=== PATIENT | female | born 1985 | race Caucasian/White ===

== ENCOUNTER 2020-11-03 07:16 | Inpatient (IN) | payer BC ==
[2020-11-03] MEDS ORDERED: Ondansetron 4 MG/2 ML SDV IVPUSH PRN (07:26)
[2020-11-03] MEDS ORDERED: Sodium Chloride 0.9% 10 ML Syringe FLUSH PRN (07:26)
[2020-11-03] MEDS ORDERED: Nalbuphine 10 MG/1 ML Vial IVPUSH PRN (07:26)
[2020-11-03] MEDS ORDERED: Oxytocin/Lactated Ringers 10 UNIT/1,000 ML BAG IV SCH ×2 (07:30)
--- NOTE | 2020-11-03 09:03 | PCM.LDHP ---
L&D History of Present Illness - General Date of Service: 11/03/20 Admit Problem/Dx: Patient Status Order with Admit Dx/Problem 11/03/20 07:26 Patient Status [ADT] Routine Admission Diagnosis/Problem Admission Diagnosis/Problem 11/03/20 08:48 Linh is a 35-year-old 5 para 3-0-1-3 female admitted on the a.m. of 11/03/2020 at 40-0/7 weeks with an MJ of 11/03/2020 for elective induction of labor. Source of Information: Patient History Limitations: Reports: No Limitations - History of Present Illness Introduction:: Linh is a 35-year-old 5 para 3-0-1-3 female admitted on the a.m. of 11/03/2020 at 40-0/7 weeks with an MJ of 11/03/2020 for elective induction of labor. The procedure and process of induction of labor its risks, benefits, limitations and alternatives of care including allowing for natural onset of labor all discussed with patient. She appears understand and wishes to proceed. THERAPEUTIC SPECIALIST history: 5 para 3-0-1-3. Patient has had 3 vaginal deliveries in the past and 1 ectopic resulting in a right salpingectomy. Her babies have been delivered in [place]. She had menarche at age 13. Cycles q. 26 days. Last menstrual period onset 01/28/2020 was certain. Cycles are regular and she is not using any control at the time of conception. Previous obstetric history includes the followin. Female born 05/31/2013 at 40 weeks gestational age after 12 hours of labor7 pounds 4 ouncesNSVDepidural [facility]del[facility]. 2. Right tubal 03/27/2014 at 6 weeks gestation. Treated with right salpingectomy 3. Male infant born 07/02/2015 at 41 weeks gestational age after 12 hours of labor9 pounds 9 ouncesNSVDepidural [facility]. 4. Male infant born 05/28/2019 at 40 weeks gestational age after 12 hours of labor9 pounds 8 ouncesNSVD-no anesthesia-delivered [facility]-child's name is Cole course: Patient was initially seen for care on 04/11/2020. She is seen on a very regular basis. Her vital signs remained stable throughout the course. Her weight gain was from 212.2 pounds to 238.8 pounds for a 26 pound increase. Ultrasound evaluation obtained at 20 weeks did not optimally visualize all anatomy. Repeat ultrasound at 24-4/7 weeks showed the right femur to be shorter than the left femur. This was followed and evaluated again at 32 weeks and by maternal- medicine at 35 weeks. 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 There is no concerns noted that would preclude delivery in [place] but because of uncertain bone structure and composition recommendation was not to do operative vaginal delivery. Patient desires an epidural in labor. She is group B strep negative. She declined genetic testing. She has a history of depression with anxiety. She has been on bupropion HCl ER (XL) 150 mg daily. Her [place] depression screen on 07/01/2020 as a score of 21/30. She plans on breast-feeding. Tdap was given on 09/04/2020. Patient is rubella immune. Laboratory testing shows blood to be O+ with a negative antibody screen. First hemoglobin was 12.7 g/dL and platelets were 322,000. She is rubella immune. RPR is nonreactive. Urine culture was negative. HIV and hepatitis B surface antigen assays were both negative. Chlamydia and gonorrhea were both negative. Hepatitis C virus antibody was less than 0.1normal. Second trimester laboratory testingpatient declined the 1 hour GTT. Hemoglobin A1c was unremarkablenormal at 5.6%. Group B strep screen was negative. Hemoglobin on 10/08/2020 was 11.3 and platelets were 249. Allergies: 1. Ceclor Medications: 1. vitamins 1 daily 2. Bupropion XL 150 mg p.o. daily 3. Zyrtec 10 mg p.o. daily as needed 4. Ferrous sulfate 325 mg p.o. daily. Past medical history: 1. x3 2. Anxiety/depression with history of depression on meds 3. Right tubal pregnancytreated with salpingectomy Past surgical history: 1. [place] teeth extraction 2. Right salpingectomy Family history: Mother is alive with high cholesterol and history of depression. Father is alive with platelet abnormality, spleen removed, lung cancer, non- smoker. Maternal grandfather in his 90s. Maternal grandmother in her 90s. Paternal grand father is from dementia in his mid 80s. Paternal grandmother is early 70scolon cancer diagnosed in her early 40s. from liver failure, nondrinker. Patient has 4 sisters who are alive and well. There is no family history of bleeding/clotting disorders, anesthesia related problems or related concerns. Social history: Patient is . is Juancho. 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 She is a [employer] graduate. They live in [place], [place]. Review of systems: Review of systems: In general patient has no complaints. Baby has been active. Occasional contractions noted. Skin: Negative Lungs: No infectious symptoms or shortness of breath Cardiovascular: No chest pain or exercise intolerance Breasts: No lumps, changes in size, pain, dimpling, discharge or axillary or supraclavicular concerns. GI: Negative : Body habitus changes associated with Musculoskeletal: Negative Neurological: Negative Physical exam: In general the patient is well-developed, well-nourished, pleasant female of stated age in no acute distress. On last evaluation clinic on 10/31/2020 blood pressure is 122/88. Weight was 238.8 pounds with pregravid weight of 212 pounds. Height is 5 feet 5 inches. heart rate was 152 bpm. Skin is warm dry without lesions. HEENT, neck and back within normal limits. Lungs are clear with good breath sounds in all lung owen. Cardiovascular exam shows regular and rhythm without murmurs. Breast exam is not done at this time having been done at first heath visit and found to be normal. She plans to breast-feed. Abdomen is gravid with last fundal height in clinic at 38 cm. Baby in vertex presentation.. Genital per digital exam shows cervix to be 2 cm, 90% effaced, soft, anterior, - 1 station. AROM was undertaken with resultant clear amniotic fluid. Extremities and neurological exam are grossly within normal limits. - Related Data Allergies/Adverse Reactions: Allergies Allergy/AdvReac Type Severity Reaction Status Date / Time cefaclor [From [facility]] Allergy Rash Verified 11/03/20 08:13 Past Medical History HEENT History: Reports: Allergic Rhinitis THERAPEUTIC SPECIALIST History: Reports: Ectopic , , Other (See Below) Other OB/BYN History: Hx: macrosomic , right salpingectomy Psychiatric History: Reports: Anxiety, Depression - Past Surgical History HEENT Surgical History: Reports: Oral Surgery Other HEENT Surgeries/Procedures: [place] teeth extraction Social & Family History - Family History Family Medical History: No Pertinent Family History - Tobacco Use Tobacco Use Status *Q: Never Tobacco User Second Hand Smoke Exposure: No - Recreational Drug Use Recreational Drug Use: No H&P Review of Systems - Review of Systems: Review Of Systems: See Below L&D Exam - Exam Exam: See Below - Vital Signs Weight: 107.229 kg - Patient Data Lab Results Last 24 hrs: Laboratory Results - last 24 hr 11/03/20 11/03/20 Range/Units 07:40 07:40 WBC 10.34 H (3.98-10.04) K/mm3 RBC 4.10 (3.98-5.22) M/mm3 Hgb 11.4 (11.2-15.7) gm/dl Hct 34.5 (34.1-44.9) % MCV 84.1 (79.4-94.8) fl MCH 27.8 (25.6-32.2) pg MCHC 33.0 (32.2-35.5) g/dl RDW Std Deviation 47.2 H (36.4-46.3) fL Plt Count 218 (182-369) K/mm3 MPV 7.9 L (9.4-12.3) fl Neut % (Auto) 76.9 H (34.0-71.1) % Lymph % (Auto) 13.9 L (19.3-51.7) % Peach % (Auto) 7.2 (4.7-12.5) % Eos % (Auto) 1.4 (0.7-5.8) Baso % (Auto) 0.1 (0.1-1.2) % Neut # (Auto) 7.96 H (1.56-6.13) K/mm3 Lymph # (Auto) 1.44 (1.18-3.74) K/mm3 Peach # (Auto) 0.74 H (0.24-0.36) K/mm3 Eos # (Auto) 0.14 (0.04-0.36) K/mm3 Baso # (Auto) 0.01 (0.01-0.08) K/mm3 SARS-CoV-2 RNA (IRON) Negative (NEGATIVE) Result Diagrams: 11/03/20 07:40 - Problem List (1) 40 weeks gestation of SNOMED Code(s): 65976769 ICD Code: Z3A.40 - 40 WEEKS GESTATION OF Status: Acute Current Visit: Yes (2) History of anxiety SNOMED Code(s): 955617044 ICD Code: Z86.59 - PERSONAL HISTORY OF OTHER MENTAL AND BEHAVIORAL DISORDERS Status: Acute Current Visit: Yes (3) History of depression SNOMED Code(s): 172118541 ICD Code: Z86.59 - PERSONAL HISTORY OF OTHER MENTAL AND BEHAVIORAL DISORDERS Status: Acute Current Visit: Yes (4) anomaly SNOMED Code(s): 39677164, 265757128 ICD Code: [id number] - Status: Acute Current Visit: Yes (5) Obesity SNOMED Code(s): 349814518, 747703584 ICD Code: E66.9 - OBESITY, UNSPECIFIED Status: Acute Current Visit: Yes (6) macrosomia SNOMED Code(s): 09946536 ICD Code: O36.60X0 - MATERNAL CARE FOR EXCESS GROWTH, UNSP TRIMESTER, UNSP Status: Acute Current Visit: Yes Problem List Initiated/Reviewed/Updated: Yes Orders Last 24hrs: Active Orders 24 hr Category Date Time Status Patient Status [ADT] Routine ADT 11/03/20 07:26 Active Activity as Tolerated [RC] PFP Care 11/03/20 07:26 Active Communication Order [RC] ASDIRECTED Care 11/03/20 07:26 Active Heart Tones [RC] ASDIRECTED Care 11/03/20 07:26 Active Non Stress Test [RC] PER UNIT ROUTINE Care 11/03/20 07:26 Active Notify Provider [RC] PFP Care 11/03/20 07:26 Active Notify Provider [RC] PRN Care 11/03/20 07:26 Active Peripheral IV Care [RC] . DIRECTED Care 11/03/20 07:26 Active Vital Signs [RC] PER UNIT ROUTINE Care 11/03/20 07:26 Active Regular Diet [DIET] Diet 11/03/20 Breakfast Active BLOOD BANK HOLD SPECIMEN [BBK] Stat Lab 11/03/20 07:40 Received RAPID PLASMA REAGIN,RPR [CHEM] Routine Lab 11/03/20 07:40 Received Lactated Ringers [Ringers, Lactated] 1,000 ml Med 11/03/20 07:30 Active IV ASDIRECTED Nalbuphine [Nubain] Med 11/03/20 07:26 Active 10 mg IVPUSH Q2H PRN Ondansetron [Zofran] Med 11/03/20 07:26 Active 4 mg IVPUSH Q4H PRN Oxytocin/Lactated Ringers [Pitocin in LR 10 Units/1,000 Med 11/03/20 07:30 Active ML] 10 unit in 1,000 ml IV .CONTINUOUS Oxytocin/Lactated Ringers [Pitocin in LR 10 Units/1,000 Med 11/03/20 07:30 Active ML] 10 unit in 1,000 ml IV TITRATE Sodium Chloride 0.9% [Saline Flush] Med 11/03/20 07:26 Active 10 ml FLUSH ASDIRECTED PRN Electronic Heart Tones Ext w TOCO [WOMSER] Oth 11/03/20 07:26 Ordered Routine Electronic Heart Tones Internal [WOMSER] Per Unit Oth 11/03/20 07:26 Ordered Routine Peripheral IV Insertion Adult [OM.PC] Routine Oth 11/03/20 07:26 Ordered Resuscitation Status Routine Resus Stat 11/03/20 07:26 Ordered Medication Orders Oxytocin/Lactated Ringer's (Pitocin In Lr 10 Units/1,000 Ml) 10 unit in 1,000 mls @ 12 mls/hr IV TITRATE MAYDA; Protocol Oxytocin/Lactated Ringer's (Pitocin In Lr 10 Units/1,000 Ml) 10 unit in 1,000 mls @ 500 mls/hr IV .CONTINUOUS MAYDA Lactated Ringer's (Ringers, Lactated) 1,000 mls @ 100 mls/hr IV ASDIRECTED MAYDA Nalbuphine HCl (Nalbuphine 10 Mg/1 Ml Vial) 10 mg IVPUSH Q2H PRN PRN Reason: Pain Ondansetron HCl (Ondansetron 4 Mg/2 Ml Sdv) 4 mg IVPUSH Q4H PRN PRN Reason: Nausea/Vomiting Sodium Chloride (Sodium Chloride 0.9% 10 Ml Syringe) 10 ml FLUSH ASDIRECTED PRN PRN Reason: Keep Vein Open Assessment/Plan Comment:: 1Jake Melton is a 35-year-old 5 para 3-0-1-3 female admitted on the a.m. of 11/03/2020 at 40-0/7 weeks with an MJ of 11/03/2020 for elective induction of labor. 2. Group B strep negative 3. Patient desires epidural 4. Risk factors include the following: History of anomalyright leg rhizomelia, history of depression/anxietyon meds, obesity, previous ectopic pregnancyright fallopian tube, history of macrosomia. 5. Patient plans to breast-feed. Plan: 1. AROM induction of labor with Pitocin augmentation as indicated. 2. Anticipate 3. Support breast-feeding decision 4. Continue on bupropion after delivery 5. Routine preoperative evaluation with CBC, Covid19 testing, RPR. 6. Epidural for labor analgesia. 7. No operative vaginal deliveries per [facility] recommendation
[2020-11-03] MEDS: Lactated Ringers 1,000 ML IV SCH ×2 (10:04→11:06)
[2020-11-03] MEDS ORDERED: Bupivacaine/fentaNYL/NS 100 ML Bag EPIDUR PRN (11:02)
[2020-11-03] MEDS ORDERED: fentaNYL 100 MCG/2 ML SDV EPIDUR PRN (11:02)
[2020-11-03] MEDS ORDERED: diphenhydrAMINE 50 MG/ML SDV IVPUSH PRN (11:02)
[2020-11-03] MEDS ORDERED: ePHEDrine 50 MG/ML SDV IVPUSH PRN (11:02)
--- NOTE | 2020-11-03 11:14 | PCM.PREANE ---
Preanesthetic Assessment - Procedure Proposed Procedure: Labor epidural - Anesthesia/Transfusion/Family Hx Anesthesia History: Prior Anesthesia Without Reaction Family History of Anesthesia Reaction: No Transfusion History: No Prior Transfusion(s) Intubation History: Unknown - Review of Systems General: No Symptoms Pulmonary: Cough (Has a cough, has a cold, covid negative) Cardiovascular: No Symptoms Gastrointestinal: Abdominal Pain (uterine contractions) Neurological: No Symptoms Other: Reports: Depression, Anxiety - Physical Assessment NPO Status Date: 11/03/20 NPO Status Time: 11:10 Vital Signs: Last Vital Signs Temp 97.9 F 11/03/20 07:26 Pulse 100 11/03/20 07:26 Resp 16 11/03/20 07:26 BP 136/76 11/03/20 07:26 Pulse Ox 100 11/03/20 07:26 Height: 1.7 m Weight: 107.229 kg ASA Class: 2 Mental Status: Alert & Oriented x3 Airway Class: Mallampati = 2 Dentition: Reports: Normal Dentition Thyro-Mental Finger Breadths: 3 Mouth Opening Finger Breadths: 3 ROM/Head Extension: Full Lungs: Clear to Auscultation, Normal Respiratory Effort Cardiovascular: Regular Rate, Regular Rhythm, No Murmurs - Lab Values: Laboratory Last Values WBC 10.34 K/mm3 (3.98-10.04) H 11/03/20 07:40 RBC 4.10 M/mm3 (3.98-5.22) 11/03/20 07:40 Hgb 11.4 gm/dl (11.2-15.7) 11/03/20 07:40 Hct 34.5 % (34.1-44.9) 11/03/20 07:40 MCV 84.1 fl (79.4-94.8) 11/03/20 07:40 MCH 27.8 pg (25.6-32.2) 11/03/20 07:40 MCHC 33.0 g/dl (32.2-35.5) 11/03/20 07:40 RDW Std Deviation 47.2 fL (36.4-46.3) H 11/03/20 07:40 Plt Count 218 K/mm3 (182-369) 11/03/20 07:40 MPV 7.9 fl (9.4-12.3) L 11/03/20 07:40 Neut % (Auto) 76.9 % (34.0-71.1) H 11/03/20 07:40 Lymph % (Auto) 13.9 % (19.3-51.7) L 11/03/20 07:40 Motley % (Auto) 7.2 % (4.7-12.5) 11/03/20 07:40 Eos % (Auto) 1.4 (0.7-5.8) 11/03/20 07:40 Baso % (Auto) 0.1 % (0.1-1.2) 11/03/20 07:40 Neut # (Auto) 7.96 K/mm3 (1.56-6.13) H 11/03/20 07:40 Lymph # (Auto) 1.44 K/mm3 (1.18-3.74) 11/03/20 07:40 Motley # (Auto) 0.74 K/mm3 (0.24-0.36) H 11/03/20 07:40 Eos # (Auto) 0.14 K/mm3 (0.04-0.36) 11/03/20 07:40 Baso # (Auto) 0.01 K/mm3 (0.01-0.08) 11/03/20 07:40 SARS-CoV-2 RNA (IRON) Negative (NEGATIVE) 11/03/20 07:40 Labs reviewed and okay to proceed - Allergies Allergies/Adverse Reactions: Allergies Allergy/AdvReac Type Severity Reaction Status Date / Time cefaclor [From [facility]] Allergy Rash Verified 11/03/20 08:13 - Blood Blood Available: No - Acknowledgements Anesthesia Type Planned: Epidural Pt an Appropriate Candidate for the Planned Anesthesia: Yes Alternatives and Risks of Anesthesia Discussed w Pt/Guardian: Yes Pt/Guardian Understands and Agrees with Anesthesia Plan: Yes PreAnesthesia Questionnaire HEENT History: Reports: Allergic Rhinitis Cardiovascular History: Reports: None Respiratory History: Reports: None Gastrointestinal History: Reports: GERD Genitourinary History: Reports: None 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 , , Other (See Below) Other OB/BYN History: Hx: macrosomic , right salpingectomy Musculoskeletal History: Reports: None Neurological History: Reports: None Psychiatric History: Reports: Anxiety, Depression Endocrine/Metabolic History: Reports: Obesity/BMI 30+ Hematologic History: Reports: None Immunologic History: Reports: None Oncologic (Cancer) History: Reports: None Dermatologic History: Reports: None - Past Surgical History HEENT Surgical History: Reports: Oral Surgery Other HEENT Surgeries/Procedures: [place] teeth extraction Other Female Surgeries/Procedures: Right salpingectomy - SUBSTANCE USE Tobacco Use Status *Q: Never Tobacco User Tobacco Use Within Last Twelve Months: No Second Hand Smoke Exposure: No Recreational Drug Use History: No - HOME MEDS Home Medications: Home Meds Cetirizine HCl [Zyrtec] 10 mg PO DAILY 11/03/20 [History] Mv-Mn/Iron/FA/Herbal/Digestive [ One Tablet] 1 each PO DAILY 11/03/20 [History] buPROPion HCL [Wellbutrin Xl] 150 mg PO DAILY 11/03/20 [History] - CURRENT (IN HOUSE) MEDS Current Meds: Current Medications Diphenhydramine HCl (Diphenhydramine 50 Mg/Ml Sdv) 25 mg IVPUSH Q6H PRN PRN Reason: pruritis Ephedrine Sulfate (Ephedrine 50 Mg/Ml Sdv) 5 mg IVPUSH ASDIRECTED PRN PRN Reason: Hypotension Fentanyl (Fentanyl 100 Mcg/2 Ml Sdv) 100 mcg EPIDUR Q3H PRN PRN Reason: Pain Fentanyl/Bupivacaine HCl (Bupivacaine/Fentanyl/Ns 100 Ml Bag) 100 ml EPIDUR ASDIRECTED PRN PRN Reason: Pain Oxytocin/Lactated Ringer's (Pitocin In Lr 10 Units/1,000 Ml) 10 unit in 1,000 mls @ 12 mls/hr IV TITRATE MAYDA; Protocol Last Titration: 11/03/20 11:02 Dose: 4 munits/min, 24 mls/hr Documented by: Oxytocin/Lactated Ringer's (Pitocin In Lr 10 Units/1,000 Ml) 10 unit in 1,000 mls @ 500 mls/hr IV .CONTINUOUS MAYDA Lactated Ringer's (Ringers, Lactated) 1,000 mls @ 100 mls/hr IV ASDIRECTED MAYDA Last Admin: 11/03/20 11:06 Dose: 100 mls/hr Documented by: Nalbuphine HCl (Nalbuphine 10 Mg/1 Ml Vial) 10 mg IVPUSH Q2H PRN PRN Reason: Pain Ondansetron HCl (Ondansetron 4 Mg/2 Ml Sdv) 4 mg IVPUSH Q4H PRN PRN Reason: Nausea/Vomiting Sodium Chloride (Sodium Chloride 0.9% 10 Ml Syringe) 10 ml FLUSH ASDIRECTED PRN PRN Reason: Keep Vein Open
[2020-11-03] MEDS ORDERED: Bupivacaine 0.25% 10 ML SDV ONE (12:00)
--- NOTE | 2020-11-03 17:39 | PCM.SN.2 ---
- Free Text/Narrative Note: Stage I: Linh is a 35-year-old 5 para 4-0-1-4 female admitted on the a.m. of 11/03/2020 at 40-0/7 weeks with an MJ of 11/03/2020 for elective induction of labor. Linh underwent AROM with resultant clear amniotic fluid. She had a very slow start to her contraction pattern therefore was augmented with Pitocin per protocol. Dose was increased to obtain a good labor pattern. She underwent epidural for labor analgesia. She had an intrauterine pressure catheter placed for closer monitoring of contraction strength. She rapidly progressed from approximately 4 cm to complete. Heart tones reassuring. Vital signs remained stable throughout the labor. Stage II: Linh delivered a viable, lowery, female named Anh Johnston spontaneously and precipitously with delivery managed by nursing personnel with no physician in attendance. The baby was placed on mom's abdomen and dried with warm blanket. Nursing reports that the baby came out in occiput anterior position, had a nuchal cord x1 which was loose and reduced over the baby's body. Baby's nose and mouth were bulb suction. Pitocin was increased to 500 cc an hour using routine 10 units/L concentration already been used for induction/augmentation. This to facilitate increase in uterine tone and decrease likelihood of bleeding. The umbilical cord was allowed to pulsate for several minutes and then was clamped x2 and cut by the baby's father Juancho. Umbilical cord had 3 vessels. Cord blood was obtained. The baby weighed 3930 g (8 pounds 10.6 ounces), had a length of 21.0 inches and had Apgars of 8 and 9. Baby's right femur was noted to be shorter than the left as was already known secondary to repeated ultrasounds. The perineum remained intact and no vaginal, perineal or vulvar lacerations were present. No suturing was required. Stage III: The placenta delivered intact in a Whittaker presentation, appeared intact and complete and was discarded per patient desire. The estimated blood loss was 200 cc. Patient plans to breast-feed. Condition: Good
[2020-11-03] MEDS ORDERED: Docusate Sodium 100 MG Cap PO PRN (17:54)
[2020-11-03] MEDS ORDERED: Acetaminophen 325 MG Tab PO PRN (17:54)
[2020-11-03] MEDS ORDERED: Witch Hazel Medicated Pads 40/Jar TOP PRN (17:54)
[2020-11-03] MEDS ORDERED: Benzocaine/Menthol 20%-0.5% Spray 78 GM Cannister TOP PRN (17:54)
[2020-11-03] MEDS: Ibuprofen 600 MG Tab PO PRN (21:13)
[2020-11-04] MEDS: Ibuprofen 600 MG Tab PO PRN (08:35)
--- NOTE | 2020-11-04 08:55 | PCM.SN.2 ---
- Free Text/Narrative Note: Visited with patient regarding her epidural experience. Patient stated that it "worked great". Discussed signs and symptoms of infection, post-dural puncture headache, and post- depression. Patient currently taking medications for previous post- depression. Patient denying any of those symptoms at this time. Encouraged patient to contact OB/Anesthesia if any of these symptoms develop even after the patient goes home so the patient may be treated accordingly if needed. Also discussed that the patient may experience some back pain from the epidural placement. Patient stated that she does have some mild discomfort in which she described as a bruise. Encouraged patient to contact OB/Anesthesia if her back pain gets worse. Patient verbalized understanding. No questions or concerns verbalized at this time. Patient stated she was very happy with her experience. Jeannine Ford, STRING STUDIES DIRECTOR
[2020-11-04] MEDS ORDERED: buPROPion 150 MG Tab.ER PO SCH (09:00)
[2020-11-04] MEDS ORDERED: Prenatal Multivitamin with Calcium/Folic Acid/Iron Tab PO SCH (09:00)
--- NOTE | 2020-11-04 15:04 | PCM.DCSUM1 ---
Discharge Summary - Hospital Course Free Text/Narrative:: Stage I: Linh is a 35-year-old 5 para 4-0-1-4 female admitted on the a.m. of 11/03/2020 at 40-0/7 weeks with an MJ of 11/03/2020 for elective induction of labor. Linh underwent AROM with resultant clear amniotic fluid. She had a very slow start to her contraction pattern therefore was augmented with Pitocin per protocol. Dose was increased to obtain a good labor pattern. She underwent epidural for labor analgesia. She had an intrauterine pressure catheter placed for closer monitoring of contraction strength. She rapidly progressed from approximately 4 cm to complete. Heart tones were reassuring. Vital signs remained stable throughout the labor. Stage II: Linh delivered a viable, lowery, female named Anh Johnston spontaneously and precipitously with delivery managed by nursing personnel with no physician in attendance. The baby was placed on mom's abdomen and dried with warm blanket. Nursing reports that the baby came out in occiput anterior position, had a nuchal cord x1 which was loose and reduced over the baby's body. Baby's nose and mouth were bulb suction. Pitocin was increased to 500 cc an hour using routine 10 units/L concentration already been used for induction/augmentation. This to facilitate increase in uterine tone and decrease likelihood of bleeding. The umbilical cord was allowed to pulsate for several minutes and then was clamped x2 and cut by the baby's father Juancho. Umbilical cord had 3 vessels. Cord blood was obtained. The baby weighed 3930 g (8 pounds 10.6 ounces), had a length of 21.0 inches and had Apgars of 8 and 9. Baby's right femur was noted to be shorter than the left as was already known secondary to repeated ultrasounds. The perineum remained intact and no vaginal, perineal or vulvar lacerations were present. No suturing was required. Stage III: The placenta delivered intact in a Whittaker presentation, appeared intact and complete and was discarded per patient desire. The estimated blood loss was 200 cc. Patient plans to breast-feed. After delivery the baby was evaluated. The right femur was found to be shorter than the left femur as had been predicted on ultrasound. Questions were answered and evaluation was recommended per Dr. Brenton ceron attending clinical technician. The patient is nursing without problems. She is ambulating well, has minimal lochia and is voiding without concerns. She is desiring discharge home. Condition: Good Diagnosis: Stroke: No - Discharge Data Discharge Date: 11/04/20 Discharge Disposition: Home, Self-Care 01 Condition: Good - Referral to Home Health Primary Care Physician: Calros Whitehead MD - Discharge Diagnosis/Problem(s) (1) 40 weeks gestation of SNOMED Code(s): 17811034 ICD Code: Z3A.40 - 40 WEEKS GESTATION OF Status: Acute Current Visit: Yes (2) History of anxiety SNOMED Code(s): 307896302 ICD Code: Z86.59 - PERSONAL HISTORY OF OTHER MENTAL AND BEHAVIORAL DISORDERS Status: Acute Current Visit: Yes (3) History of depression SNOMED Code(s): 841196648 ICD Code: Z86.59 - PERSONAL HISTORY OF OTHER MENTAL AND BEHAVIORAL DISORDERS Status: Acute Current Visit: Yes (4) anomaly SNOMED Code(s): 03586983, 214155119 ICD Code: [id number] - Status: Acute Current Visit: Yes (5) Obesity SNOMED Code(s): 683883744, 224458641 ICD Code: E66.9 - OBESITY, UNSPECIFIED Status: Acute Current Visit: Yes (6) macrosomia SNOMED Code(s): 42331776 ICD Code: O36.60X0 - MATERNAL CARE FOR EXCESS GROWTH, UNSP TRIMESTER, UNSP Status: Acute Current Visit: Yes - Patient Instructions Diet: Regular Diet as Tolerated (Nursing diet with increased calories and calcium as recommended) Activity: As Tolerated (No intercourse or tampons until bleeding resolves) Driving: May Drive Today Showering/Bathing: May Shower (May take a bath) Notify Provider of: Fever, Increased Pain, Swelling and Redness, Drainage - Discharge Plan Home Medications: Home Meds Cetirizine HCl [Zyrtec] 10 mg PO DAILY 11/03/20 [History] Mv-Mn/Iron/FA/Herbal/Digestive [ One Tablet] 1 each PO DAILY 11/03/20 [History] Acetaminophen [Tylenol] 650 mg PO Q4H PRN tablet 11/04/20 [Rx] Ibuprofen [Motrin] 600 mg PO Q4H PRN tablet 11/04/20 [Rx] buPROPion [buPROPion XL] 150 mg PO DAILY tab.er 11/04/20 [Rx] - Discharge Summary/Plan Comment DC Time >30 min.: No Total # of Minutes for Discharge Time: 10 Discharge Summary/Plan Comment: Discharge instructions: 1. Discharge home 2. Diet, activity and follow-up discussed with patient. Recommend nursing diet with increased calories and calcium. 3. Precautions given concern increased pain, bleeding, temperature, signs/symptoms of DVT/PE. 4. Medications per home medication was printed, discussed with and given to the patient. 5. Return to clinic-Dr. Whitehead[facility] in 2 weeks. Diagnosis: Term -delivered Condition: Good - Patient Data Vitals - Most Recent: Last Vital Signs Temp 36.2 C 11/04/20 09:16 Pulse 84 11/04/20 09:16 Resp 15 11/04/20 09:16 BP 112/82 11/04/20 09:16 Pulse Ox 98 11/04/20 09:16 Weight - Most Recent: 107.229 kg Lab Results - Last 24 hrs: Laboratory Results - last 24 hr 11/03/20 Range/Units 07:40 RPR Non-reactive (NONREACTIVE) Med Orders - Current: Current Medications Acetaminophen (Acetaminophen 325 Mg Tab) 650 mg PO Q4H PRN PRN Reason: mild pain or fever Last Admin: 11/04/20 00:49 Dose: 650 mg Documented by: Benzocaine/Menthol (Benzocaine/Menthol 20%-0.5% Iron 78 Gm Cannister) 0 gm TOP ASDIRECTED PRN PRN Reason: Perineal Comfort Measure Bupropion HCl (Bupropion 150 Mg Tab.Er) 150 mg PO DAILY [facility] Last Admin: 11/04/20 08:35 Dose: 150 mg Documented by: Docusate Sodium (Docusate Sodium 100 Mg Cap) 100 mg PO BID PRN PRN Reason: Constipation Last Admin: 11/04/20 13:42 Dose: 100 mg Documented by: Ibuprofen (Ibuprofen 600 Mg Tab) 600 mg PO Q4H PRN PRN Reason: Mild pain or fever Last Admin: 11/04/20 08:35 Dose: 600 mg Documented by: Prenat Multivit/Pumping Supervisor/Iron/Folic Ac ( Multivitamin With Calcium/Folic Acid/Iron Tab) 1 each PO DAILY [facility] Last Admin: 11/04/20 08:35 Dose: 1 each Documented by: Octavia Bustillo (Octavia Bustillo Medicated Pads 40/Jar) 1 pad TOP ASDIRECTED PRN PRN Reason: Perineal Comfort Measure Last Admin: 11/03/20 21:12 Dose: 1 canister Documented by: Discontinued Medications Bupivacaine HCl (Bupivacaine 0.25% 10 Ml Sdv) 10 ml .ROUTE .K-MED ONE Stop: 11/03/20 12:01 Diphenhydramine HCl (Diphenhydramine 50 Mg/Ml Sdv) 25 mg IVPUSH Q6H PRN PRN Reason: pruritis Ephedrine Sulfate (Ephedrine 50 Mg/Ml Sdv) 5 mg IVPUSH ASDIRECTED PRN PRN Reason: Hypotension Fentanyl (Fentanyl 100 Mcg/2 Ml Sdv) 100 mcg EPIDUR Q3H PRN PRN Reason: Pain Last Admin: 11/03/20 11:08 Dose: 100 mcg Documented by: Fentanyl/Bupivacaine HCl (Bupivacaine/Fentanyl/Ns 100 Ml Bag) 100 ml EPIDUR ASDIRECTED PRN PRN Reason: Pain Last Admin: 11/03/20 11:09 Dose: 100 ml Documented by: Oxytocin/Lactated Ringer's (Pitocin In Lr 10 Units/1,000 Ml) 10 unit in 1,000 mls @ 12 mls/hr IV TITRATE MAYDA; Protocol Last Titration: 11/03/20 16:01 Dose: 18 munits/min, 108 mls/hr Documented by: Oxytocin/Lactated Ringer's (Pitocin In Lr 10 Units/1,000 Ml) 10 unit in 1,000 mls @ 500 mls/hr IV .CONTINUOUS MAYDA Last Admin: 11/03/20 17:50 Dose: 500 mls/hr Documented by: Lactated Ringer's (Ringers, Lactated) 1,000 mls @ 100 mls/hr IV ASDIRECTED MAYDA Last Admin: 11/03/20 11:06 Dose: 100 mls/hr Documented by: Nalbuphine HCl (Nalbuphine 10 Mg/1 Ml Vial) 10 mg IVPUSH Q2H PRN PRN Reason: Pain Ondansetron HCl (Ondansetron 4 Mg/2 Ml Sdv) 4 mg IVPUSH Q4H PRN PRN Reason: Nausea/Vomiting Sodium Chloride (Sodium Chloride 0.9% 10 Ml Syringe) 10 ml FLUSH ASDIRECTED PRN PRN Reason: Keep Vein Open
== END 2020-11-04 18:09 | disposition home or self-care (01) | DRG 560 ==
LOC: JD.OB 07:16 → OBSVTOIN 16:57 → JD.OB 16:57
PROVIDERS: ADMIT Obstetrics & Gynecology; ATTEND Obstetrics & Gynecology
PROC: 10E0XZZ Delivery of Products of Conception, External Approach (ICD-10-PCS; principal; 2020-11-03)
PROC: 10H07YZ Insertion of Other Device into Products of Conception, Via Natural or Artificial Opening (ICD-10-PCS; 2020-11-03)
PROC: 10907ZC Drainage of Amniotic Fluid, Therapeutic from Products of Conception, Via Natural or Artificial Opening (ICD-10-PCS; 2020-11-03)
PROC: 3E0R3BZ Introduction of Anesthetic Agent into Spinal Canal, Percutaneous Approach (ICD-10-PCS; 2020-11-03)
PROC: 00HU33Z Insertion of Infusion Device into Spinal Canal, Percutaneous Approach (ICD-10-PCS; 2020-11-03)
DX: O99.214 Obesity complicating childbirth (principal); O36.63X0 Maternal care for excessive fetal growth, third trimester, not applicable or unspecified; Z37.0 Single live birth; Z20.822 Contact with and (suspected) exposure to COVID-19; O69.81X0 Labor and delivery complicated by cord around neck, without compression, not applicable or unspecified; Z3A.40 40 weeks gestation of pregnancy
CPT/HCPCS: 01967; 36415; 51702; 59025; 59409; 85025; 86592; A9270-GY; J2590; J3010; J3490; J7120; U0002